=== PATIENT | male | born 1975 | race Caucasian/White ===

== ENCOUNTER 2021-12-31 23:45 | Emergency (ER) | payer OTHER ==
[~2021-12-31] VITALS: Ht 175.3 cm; Wt 77.1 kg
--- NOTE | 2021-12-31 23:54 | NUR ---
BIBRA FROM [facility] FOR SEIZURE NO HEAD TRUAMA NOTED. BS 114. PT AWAKE A/OX4. TOLERATING R/A WELL WITH NO SOB, RESP EVEN AND NON LABORED. CONNECTED PT TO POX AND MONITOR.
--- NOTE | 2022-01-01 00:16 | NUR ---
Priscilla coles in [place] - 01/01/22 at 0118 by MITA RFA #20G S/L. BLOOD COLLECTED AND SENT TO LAB
--- NOTE | 2022-01-01 01:45 | NUR ---
Patient discharged to home in stable condition. Written and verbal after care instructions given. Patient verbalizes understanding of instruction. IV removed. Catheter intact and site benign. Pressure and 4x4 applied to site. No bleeding noted.
[2022-01-01 01:46] VITALS: BP 132/110
== END 2022-01-01 02:11 | disposition home or self-care (01) ==
LOC: ER 23:49
DX: G40.409 Other generalized epilepsy and epileptic syndromes, not intractable, without status epilepticus (principal)

== ENCOUNTER 2022-02-17 15:38 | Inpatient (IN) | payer OTHER ==
[~2022-02-17] VITALS: Ht 185.4 cm; Wt 113.9 kg
--- NOTE | 2022-02-17 16:00 | NUR ---
INSERTED ANGO CATHETER # 18 ON RT FORARM BLOOD DROW AND SENT TO LAB
[2022-02-17 16:27] LABS: BASOPHILS # (AUTO) 0.1 K/uL (0.0-0.2); BASOPHILS % (AUTO) 0.7 % (0.0-2.0); EOSINOPHILS % (AUTO) 1.3 % (0.0-6.0); HEMATOCRIT 44 % (39-51); LYMPHOCYTES # (AUTO) 2.6 K/uL (0.8-4.8); LYMPHOCYTES % (AUTO) 18.7 % (20.0-44.0); MEAN CORPUSCULAR HGB CONC 34 g/dl (31.0-36.0); MEAN CORPUSCULAR VOLUME 96 fL (80-96); MONOCYTES # (AUTO) 1.5 K/uL (0.1-1.30); MONOCYTES % (AUTO) 10.9 % (2.0-12.0); NEUTROPHILS # (AUTO) 9.3 K/uL (1.8-8.9); NEUTROPHILS % (AUTO) 68.4 % (43.0-81.0); PLATELET COUNT (AUTO) 289 K/uL (150-450); RED BLOOD CELL COUNT(AUTO) 4.58 MIL/uL (4.5-6.0); WHITE BLOOD COUNT (AUTO) 13.7 K/uL (4.3-11.0)
--- NOTE | 2022-02-17 16:27 | NUR ---
RECEVED PT 46 YRS MALE CAME BY [facility] FOR SEIZURE HX SZ AWAKE AND ALERT FALLOW COMMAND RESPIRATION SPONT AND EASY
--- NOTE | 2022-02-17 16:38 | NUR ---
EKG DONE AT BED SIDE
[2022-02-17 16:43] LABS: ALCOHOL, BLOOD < 3 mg/dL (0-0); CALCIUM, SERUM 8.5 mg/dL (8.5-10.1); CARBON DIOXIDE 27 mmol/L (21-32); CHLORIDE 106 mmol/L (98-107); CREATININE 1.1 mg/dL (0.6-1.3); GLUCOSE 109 mg/dL (74-106); POTASSIUM 3.3 mmol/L (3.5-5.1); SODIUM SERUM 143 mmol/L (136-145); UREA NITROGEN, BLOOD 12 mg/dL (7-18)
[2022-02-17] MEDS ORDERED: LORAZEPAM INJ 2 MG/ML VIAL ONE (17:06)
--- NOTE | 2022-02-17 17:10 | NUR ---
D PT HAD ACTIVE GENRALIZE SZ FOR 45 SECAND BOTH SIDE RAILS PADEDE DR. SEQUEIRA NOTEEFY ATIVAN 1 MG IVP GIVEN
[2022-02-17] MEDS ORDERED: ONDANSETRON HCL/PF 4 MG/2 ML VIAL IVP PRN (17:30)
[2022-02-17] MEDS ORDERED: LEVETIRACETAM (500MG) 500 MG in IV NS 0.9% 100 ML IV ONE (17:30)
[2022-02-17] MEDS ORDERED: ZOLPIDEM TARTRATE 5 MG TABLET PO PRN (17:30)
[2022-02-17] MEDS ORDERED: MAG HYDROX/AL HYDROX/SIMETH 30 ML UDC PO PRN (17:30)
[2022-02-17] MEDS ORDERED: LORAZEPAM INJ 2 MG/ML VIAL IV PRN (17:30)
[2022-02-17] MEDS ORDERED: ACETAMINOPHEN 325 MG TABLET PO PRN (17:30)
[2022-02-17] MEDS ORDERED: LORAZEPAM INJ 2 MG/ML VIAL IV ONE (17:30)
[2022-02-17] MEDS ORDERED: MAGNESIUM HYDROXIDE 30 ML UDC PO PRN (17:30)
[2022-02-17] MEDS ORDERED: LEVETIRACETAM (500MG) 500 MG in IV NS 0.9% 100 ML IV SCH (17:30)
[2022-02-17] MEDS ORDERED: phenytoin SODIUM IV 1,000 MG in IV NS 0.9% 100 ML IV ONE (17:30)
[2022-02-17] MEDS ORDERED: Z GUARD REMEDY 4 OZ OINT TP PRN (17:30)
[2022-02-17] MEDS ORDERED: phenytoin SODIUM IV 500 MG in IV NS 0.9% 50 ML IV ONE (18:00)
[2022-02-17] MEDS ORDERED: KEPPRA (18:08)
[2022-02-17] MEDS ORDERED: DILANTIN (18:08)
--- NOTE | 2022-02-17 18:20 | NUR ---
PT ALTER OF MENTALE STATES with fi2o2 15l 100% nrm
[2022-02-17] MEDS: LEVETIRACETAM (500MG) 1,000 MG in IV NS 0.9% 100 ML IV SCH (18:29)
[2022-02-17] MEDS: CEFTRIAXONE 1 G in IV D5W 50 ML IV SCH (19:00)
[2022-02-17] MEDS ORDERED: CEFTRIAXONE 1GM BAG (ER ONLY) 50 ML IV ONE (19:00)
--- NOTE | 2022-02-17 19:35 | NUR ---
HAND OFF VALERIE STOCKTON
--- NOTE | 2022-02-17 19:40 | NUR ---
RECEIVED PT IN BED 9, SLEEPING AND POSTICTAL UPON AWAKEING. SEIZURE PRECAUTIONS IN PLACE. CONNECTED TO MONITOR. ON NON REBREATHER 10L OF O2. WILL CONTINUE TO MONITOR.
--- NOTE | 2022-02-17 20:54 | NUR ---
PT NOTED TO BE MORE ALERT, AAX3. WILL CONTINUE TO MONITOR.
--- NOTE | 2022-02-17 21:13 | NUR ---
URINE SAMPLE COLLECTED AND SENT TO LAB
[2022-02-17 22:04] LABS: BILIRUBIN,URINE NEGATIVE (NEGATIVE); COLOR,URINE YELLOW (YELLOW); LEUKOCYTE ESTERASE ,URINE NEGATIVE (NEGATIVE); NITRITE, URINE NEGATIVE (NEGATIVE); PROTEIN,URINE NEGATIVE (NEGATIVE); UGLUCOSE 100 MG/DL mg/dL (NEGATIVE); UROBILINOGEN,URINE 0.2 EU/dL (0.2)
--- NOTE | 2022-02-17 22:12 | NUR ---
ROOM 107
--- NOTE | 2022-02-17 22:28 | NUR ---
RN NOT READY FOR REPORT WILL CALL BACK IN 10 MINS.
--- NOTE | 2022-02-17 23:00 | NUR ---
[facility] RN NOTES Admitted a 46 y/o male homeless a/ox3 homeless from care home with admitting dx of Breaktrough seizure , pts on r/a sating 98%, no sob no distress noted v/s stable afebrile .on tele sr on the monitor. on left fa G#18 intact and patent iv fluids of ns at 75cc/hr .pts on npo status at this time . bilateral siderails padded ,for seizure d/o .all needs attended too call light within reach .will continue to monitor pts .
[2022-02-17 23:30] VITALS: BP 123/79
[2022-02-18] VITALS: BP 123/79
[2022-02-18] MEDS: IV NS 0.9% 1,000 ML IV PRN ×2 (00:49→15:10)
--- NOTE | 2022-02-18 03:34 | NUR ---
alfie rn notes pts in bed sleeping bur responsive no c/o of pain , no seizure activity noted ,claudia continue to monitor pts.
[2022-02-18 04:00] VITALS: BP 143/86
[2022-02-18] MEDS ORDERED: LEVETIRACETAM (500MG) 500 MG/5 ML VIAL IV ONE ×2 (05:30→05:44)
[2022-02-18] MEDS: LEVETIRACETAM (500MG) 1,000 MG in IV NS 0.9% 100 ML IV SCH (06:17)
[2022-02-18 06:29] LABS: ABG BASE EXCESS 1.7 mmol/L; ABG OXYGEN SATURATION 94.6 % (92.0-98.5); ABG PCO2 40.4 mmHg (35.0-45.0); ABG PH 7.429 (7.350-7.450); ABG PO2 70.5 mmHg (75.0-100.0); AaDO2 30.9 mmHg; COHb 1.8 % (0.5-1.5); O2Hb 92.9 % (94.0-97.0); SITE, ABG Right Radial; VENT MODE, BG ROOM AIR
--- NOTE | 2022-02-18 07:05 | NUR ---
alfie rn notes pts remains in bed a/ox4 on r/a sating 98% no sob no distress noted ivf ns at 75cc/hr tolerating well , no seizure activity noted will indorse to rn day shift for continuity of care.
--- NOTE | 2022-02-18 07:12 | NUR ---
RN OPENING NOTES PATIENT IN BED RESTING ALERT AND ORIENTED TIMES 4. ON ROOM AIR SATURATING AT 98%. ATTACHED TO EXTERNAL TAPE STRINGER READING NSR. URINAL AT THE BEDSIDE. BILATERAL LOWER EXTREMITY EDEMA NOTED. NPO STATUS NOTED. IV ACCESS ON RIGHT FOREARM 18 GAUGE RUNNING NORMAL SALINE ORDERED. SAFETY MEASURES IMPLEMENTED, SIDE RAILS UP TIMES 2, CALL BUTTON WITHIN REACH. WILL CONTINUE PLAN OF CARE AND ANTICIPATE NEEDS.
[2022-02-18] MEDS ORDERED: LEVE500T20 PO (07:30)
[2022-02-18] MEDS ORDERED: PHEN100C12 PO (07:30)
[2022-02-18 08:00] VITALS: BP 130/76
[2022-02-18] MEDS: PANTOPRAZOLE 40 MG VIAL IV SCH (08:05)
[2022-02-18 11:01] LABS: BASOPHILS # (AUTO) 0.1 K/uL (0.0-0.2); BASOPHILS % (AUTO) 0.5 % (0.0-2.0); EOSINOPHILS % (AUTO) 2.3 % (0.0-6.0); HEMATOCRIT 44 % (39-51); HEMOGLOBIN 15.1 g/dL (13.5-17.5); LYMPHOCYTES # (AUTO) 2.2 K/uL (0.8-4.8); LYMPHOCYTES % (AUTO) 20.4 % (20.0-44.0); MEAN CORPUSCULAR HGB CONC 34 g/dl (31.0-36.0); MEAN CORPUSCULAR VOLUME 97 fL (80-96); MONOCYTES # (AUTO) 1.2 K/uL (0.1-1.30); MONOCYTES % (AUTO) 11.1 % (2.0-12.0); NEUTROPHILS # (AUTO) 7.2 K/uL (1.8-8.9); NEUTROPHILS % (AUTO) 65.7 % (43.0-81.0); PLATELET COUNT (AUTO) 252 K/uL (150-450); RED BLOOD CELL COUNT(AUTO) 4.57 MIL/uL (4.5-6.0); WHITE BLOOD COUNT (AUTO) 10.9 K/uL (4.3-11.0)
[2022-02-18 12:00] VITALS: BP 139/91
[2022-02-18 12:25] LABS: ALBUMIN 3.4 g/dL (3.4-5.0); BILIRUBIN,TOTAL 0.6 mg/dL (0.2-1.0); CALCIUM, SERUM 8.2 mg/dL (8.5-10.1); CREATININE 0.6 mg/dL (0.6-1.3); MAGNESIUM 2.2 mg/dL (1.8-2.4); PHOSPHORUS 3.1 mg/dL (2.5-4.9); POTASSIUM 3.4 mmol/L (3.5-5.1); TOTAL PROTEIN, SERUM 7.2 g/dL (6.4-8.2)
[2022-02-18 16:00] VITALS: BP 124/90
[2022-02-18] MEDS: CEFTRIAXONE 1 G in IV D5W 50 ML IV SCH (16:30)
--- NOTE | 2022-02-18 18:40 | NUR ---
RN CLOSING NOTES PATIENT IN BED RESTING ALERT AND ORIENTED TIMES 4. ON ROOM AIR SATURATING AT 98%. ATTACHED TO EXTERNAL BEAM BUILDER HELPER READING NSR. URINAL AT THE BEDSIDE. BILATERAL LOWER EXTREMITY EDEMA NOTED. NPO STATUS NOTED. IV ACCESS ON RIGHT FOREARM 18 GAUGE RUNNING NORMAL SALINE ORDERED. SAFETY MEASURES IMPLEMENTED, SIDE RAILS UP TIMES 2, CALL BUTTON WITHIN REACH. ALL DUE MEDICATIONS ADMINISTERED, KEPT CLEAN AND DRY. WILL ENDORSE TO NIGHTSHIFT RN FOR CONTINUATION OF CARE.
[2022-02-18 20:00] VITALS: BP 135/97
--- NOTE | 2022-02-18 20:00 | NUR ---
ms rn notes Received pts in bed awake a/o x3 on r/a sating 96% no sob no distress noted , v/s stable afebrile , still on npo status . no seizure activity noted , all needs attended too call light within reach , pts remain on ivf ns at 75cc/hr tolerating well . on right forearm G18 intact and patent .pts will be transfer to [facility] , awaiting room number .will follow up.
[2022-02-18] MEDS ORDERED: LEVETIRACETAM (500MG) 1,000 MG in IV NS 0.9% 100 ML IV SCH (21:00)
--- NOTE | 2022-02-18 21:00 | NUR ---
ms rn notes pts is a/ox4 able to follow command . bedside swallow screen done , pts passed the swallow screen .able to drink water with no difficulty no chocking noted . laminating machine tender magda informed.
--- NOTE | 2022-02-18 21:05 | NUR ---
rn notes REPORT GIVEN TO ANAYA STOCKTON PTS GOING TO [address] [place] ROOM 312-1 FOR CONTINUITY OF CARE , DUE MEDS GIVEN ORDER.
[2022-02-18] MEDS: PHENYTOIN EXTENDED RELEASE 100 MG CAPSULE PO SCH (21:31)
--- NOTE | 2022-02-18 21:36 | NUR ---
ms rn notes spoke to magda with order regular diet , order noted and carried out.
--- NOTE | 2022-02-18 21:46 | NUR ---
MS RN NOTES PTS TRANSFER TO [address] [place] [address] 312-1 IN STABLE CONDITION .
--- NOTE | 2022-02-18 21:53 | NUR ---
RN NOTE: RECEVING TRANSFER FROM [facility] PATIENT ARRIVED STABLE BY HOSPITAL BED TO UNIT AND PLACED IN 312/1. A/OX4. NO S/S OF DISTRESS, BREATHING WITHOUT DIFFICULTY ON ROOM AIR. NO PAIN NOTED AT THIS TIME. RFA #18 INTACT AND PATENT W/ NS 75ML/HR. SAFETY MEASURES IN PLACE: BED LOCKED AND AT LOWEST POSITION, RAILS UP X4 AND PADDED (SEIZURE PRECAUTIONS), CALL KAUR GIVEN TO PATIENT AND INSTRUCTED ON ITS USE. BELONGINGS ACCOUNTED FOR, LOGGED INTO SHEET, AND PLACED IN CHART. WILL CONTINUE TO MONITOR PATIENT.
[2022-02-19] MEDS: IV NS 0.9% 1,000 ML IV PRN ×2 (06:22→22:08)
--- NOTE | 2022-02-19 06:34 | NUR ---
RN CLOSING NOTE PATIENT ASLEEP IN BED. A/OX4. NO S/S OF DISTRESS, BREATHING WITHOUT DIFFICULTY ON ROOM AIR. RFA #18 INTACT AND PATENT W/ NS 75ML/HR. SAFETY MEASURES IN PLACE: BED LOCKED IN PLACE AND AT LOWEST LEVEL, CALL KAUR WITHIN REACH. WILL ENDORSE TO NEXT SHIFT FOR BREEZY. Addendum: 02/19/22 at 0645 by ALIYA LEVY RN CORRECTION: BREATHING WITHOUT DIFFICULTY ON 2L NC.
--- NOTE | 2022-02-19 07:26 | NUR ---
RN NOTE RECEIVED PATIENT IN BED, ASLEEP, EASILY AROUSED. NO SIGNS OF ACUTE DISTRESS NOTED. STABLE ON ROOM AIR, NO SOB NOTED, BREATHING EVEN AND UNLABORED. NOTED WITH IV ACCESS ON RIGHT FORE ARM #18G, INTACT AND PATENT, WITH NS @ 75ML/HR INFUSING WELL. DEINES ANY PAIN OR DISCOMFORT AT THIS TIME. SEIZURE PRECAUTIONS IN PLACE. SAFETY MEASURE IN PLACE. BED IN LOWEST AND LOCKED POSITION, SIDE RAILS UP, CALL LIGHT PLACED WITHIN EASY REACH. WILL CONTINUE TO MONITOR PATIENT.
[2022-02-19 07:28] LABS: BASOPHILS # (AUTO) 0.1 K/uL (0.0-0.2); BASOPHILS % (AUTO) 0.9 % (0.0-2.0); EOSINOPHILS % (AUTO) 2.4 % (0.0-6.0); HEMATOCRIT 46 % (39-51); HEMOGLOBIN 15.6 g/dL (13.5-17.5); LYMPHOCYTES # (AUTO) 2.3 K/uL (0.8-4.8); LYMPHOCYTES % (AUTO) 22.6 % (20.0-44.0); MEAN CORPUSCULAR HGB CONC 34 g/dl (31.0-36.0); MEAN CORPUSCULAR VOLUME 97 fL (80-96); MONOCYTES # (AUTO) 1.1 K/uL (0.1-1.30); NEUTROPHILS # (AUTO) 6.5 K/uL (1.8-8.9); NEUTROPHILS % (AUTO) 63.1 % (43.0-81.0); PLATELET COUNT (AUTO) 273 K/uL (150-450); RED BLOOD CELL COUNT(AUTO) 4.72 MIL/uL (4.5-6.0); WHITE BLOOD COUNT (AUTO) 10.3 K/uL (4.3-11.0)
[2022-02-19 07:43] LABS: CREATININE 0.6 mg/dL (0.6-1.3); POTASSIUM 3.4 mmol/L (3.5-5.1)
[2022-02-19] MEDS: PANTOPRAZOLE 40 MG VIAL IV SCH (08:38)
[2022-02-19] MEDS: LEVETIRACETAM (250 MG) 250 MG TABLET PO SCH ×2 (08:39→21:12)
[2022-02-19] MEDS ORDERED: POTASSIUM CHLORIDE 20 MEQ TAB.PRT.SR PO SCH (11:00)
[2022-02-19] MEDS: CEFTRIAXONE 1 G in IV D5W 50 ML IV SCH (16:33)
--- NOTE | 2022-02-19 18:55 | NUR ---
RN CLOSING NOTES PATIENT IN BED, ASLEEP, EASILY AROUSED. NO SIGNS OF ACUTE DISTRESS NOTED. REMAINS STABLE ON ROOM AIR, NO SOB NOTED, BREATHING EVEN AND UNLABORED. IV ACCESS ON RIGHT FORE ARM #18G, INTACT AND PATENT, WITH NS @ 75ML/HR INFUSING WELL. ALL DUE MEDS GIVEN ORDERED. NO EPISODES OF SEIZURE NOTED THIS SHIFT. SEIZURE AND SAFETY PRECAUTIONS IN PLACE. BED IN LOWEST AND LOCKED POSITION, SIDE RAILS UP, CALL LIGHT PLACED WITHIN EASY REACH. WILL ENDORSE TO NEXT SHIFT FOR CONTINUITY OF CARE.
--- NOTE | 2022-02-19 19:20 | NUR ---
MS/RN OPENING NOTE RECEIVED PATIENT SLEEPING IN BED. ALERT AND ORIENTED X 4. ABLE TO MAKE NEEDS KNOWN. DENIES PAIN AT THIS TIME. CONTINUES ON ROOM AIR WITH NO S/SX OF RESPIRATORY DISTRESS NOTED. IV ACCESS TO RIGHT FOREARM #18G INTACT AND PATENT. CONTINUES ON IVF NS @ 75ML/HR. CONTINUES ON IV ABX. CALL LIGHT WITHIN REACH. ASPIRATION, FALL AND SAFETY PRECAUTIONS MAINTAINED. ALL NEEDS ATTENDED TO AT THIS TIME.
[2022-02-19 20:32] VITALS: BP 152/93
[2022-02-19] MEDS: PHENYTOIN EXTENDED RELEASE 100 MG CAPSULE PO SCH (21:12)
--- NOTE | 2022-02-20 06:20 | NUR ---
MS/RN CLOSING NOTE PATIENT CURRENTLY SLEEPING IN BED. ALERT AND ORIENTED X 4. ABLE TO MAKE NEEDS KNOWN. DENIES PAIN AT THIS TIME. CONTINUES ON ROOM AIR WITH NO S/SX OF RESPIRATORY DISTRESS NOTED. IV ACCESS TO RIGHT FOREARM #18G INTACT AND PATENT. CONTINUES ON IVF NS @ 75ML/HR. CONTINUES ON IV ABX. CALL LIGHT WITHIN REACH. ASPIRATION, FALL AND SAFETY PRECAUTIONS MAINTAINED. WILL ENDORSE PLAN OF CARE TO ONCOMING SHIFT RN.
--- NOTE | 2022-02-20 07:23 | NUR ---
RN OPENING NOTE RECEIVED PATIENT IN BED, AWAKE, VERBALLY RESPONSIVE. NO SIGNS OF ACUTE DISTRESS NOTED. ON ROOM AIR, NO SOB NOTED, BREATHING EVEN AND UNLABORED. NOTED WITH IV ACCESS ON RIGHT FORE ARM #18G, INTACT AND PATENT, WITH NS @ 75ML/HR INFUSING WELL. DENIES ANY PAIN OR DISCOMFORT AT THIS TIME. SEIZURE PRECAUTIONS IN PLACE. SAFETY MEASURE IN PLACE. BED IN LOWEST AND LOCKED POSITION, SIDE RAILS UP, CALL LIGHT PLACED WITHIN EASY REACH. WILL CONTINUE TO MONITOR PATIENT.
[2022-02-20 07:24] LABS: CALCIUM, SERUM 8.6 mg/dL (8.5-10.1); CREATININE 0.5 mg/dL (0.6-1.3); POTASSIUM 4.6 mmol/L (3.5-5.1)
[2022-02-20 08:00] VITALS: BP 127/84
[2022-02-20] MEDS: LEVETIRACETAM (250 MG) 250 MG TABLET PO SCH (08:31)
[2022-02-20] MEDS ORDERED: PANTOPRAZOLE 40 MG TABLET.DR PO SCH (09:00)
--- NOTE | 2022-02-20 10:45 | NUR ---
RN NOTE PATIENT'S IV ACCESS PULLED OUT. NEW PERIPHERAL INSERTED ON LEFT FOREARM #20G, WITH GOOD BLOOD RETURN, COVERED WITH TRANSPARENT DRESSING. PATIENT TOLERATED PROCEDURE WELL.
[2022-02-20] MEDS: IV NS 0.9% 1,000 ML IV PRN (11:02)
--- NOTE | 2022-02-20 11:30 | NUR ---
SS consult requested over the weekend for homelessness. SW will follow up at a later time.
--- NOTE | 2022-02-20 15:00 | NUR ---
RN NOTE SPOKE WITH PATIENT AND PATIENT AWARE REGARDING MD'S ORDER FOR DISCHARGE. PER PATIENT HE WILL BE GOING TO HIS SISTERS [facility]T IN [address] [place] [address], [facility]. PER PATIENT HE WILL BE PICKED UP BY SISTER NEHAL.
--- NOTE | 2022-02-20 15:45 | NUR ---
CANNONEER NOTE PATIENT DISCHARGED HOME IN STABLE CONDITION. PATIENT A/O X4, VERBALLY RESPONSIVE. IV ACCESS REMOVED, NO BLEEDING NOTED, PRESSURE DRESSING APPLIED TO SITE. ARM NAME BAND REMOVED. ALL BELONGINGS ACCOUNTED FOR, FORM SIGNED BY PATIENT. EXIT CARE FOLDER GIVEN TO PATIENT. DISCHARGE INSTRUCTIONS PROVIDED WITH VERBALIZATION OF UNDERSTANDING. PATIENT LEFT UNIT @1550, AMBULATORY. CN AWARE OF DISCHARGE.
== END 2022-02-20 15:47 | disposition home or self-care (01) | DRG 53 ==
LOC: ER 15:40 → TELE1 22:49 → TELE-TD 23:04 → MEDSG1 02-18 19:21 → MED 02-18 21:43
PROVIDERS: ADMIT Nurse Practitioner Acute Care; ATTEND Nurse Practitioner Acute Care
DX: G40.409 Other generalized epilepsy and epileptic syndromes, not intractable, without status epilepticus (principal); E66.9 Obesity, unspecified; E87.6 Hypokalemia; Z59.01 Sheltered homelessness; Z68.33 Body mass index [BMI] 33.0-33.9, adult; Z91.19 Patient's noncompliance with other medical treatment and regimen
CPT/HCPCS: 36415; 36600; 70450-TC; 71045-TC; 80048-TC; 80053-TC; 80185-TC; 82140-TC; 83735-TC; 84100-TC; 84484-TC; 85025-TC; 87081-TC; 87086-TC; 97116-TC; 97530-TC; C9113; C9803; G0378; G0480; J0696; J1165; J1953; J2060; J7030; J7060